=== PATIENT | female | born 1965 | race Caucasian/White ===

== ENCOUNTER 2016-12-03 01:17 | Observation (INO) | payer MEDICARE ==
--- NOTE | ~2016-12-03 | EKG ---
PATIENT: ALESSANDRO HUFFMAN UNIT #: [id number] Ventricular Rate: 76 BPM Atrial Rate: 76 BPM P-R Interval: 152 ms QRS Duration: 74 ms Q-T Interval: 400 ms QTC Calculation(Bezet): 450 ms P [place]: 22 degrees Calculated R [place]: 42 degrees Calculated T [place]: 63 degrees Diagnosis Line: Normal sinus rhythm Diagnosis Line: Normal ECG Diagnosis Line: When compared with ECG of 28-JUN-2016 08:25, Diagnosis Line: Vent. rate has decreased BY 45 BPM Diagnosis Line: Confirmed by DIMPLE FOFANA MD ([id number]) on 12/04/2016 Diagnosis Line: 9:14:13 PM INTERPRETING MD: CT HAN
--- NOTE | ~2016-12-03 | HP ---
Unit #: [id number] #: [id number] Patient: ALESSANDRO HUFFMAN [id number] [address] [address] [id number] Kalyn MR#: [id number] NAME: ALESSANDRO HUFFMAN ROOM: 324 Age: 50 Sex: F Admission Date: 12/03/2016 : 1965 Attending Physician: Keyana Lomas M.D. Primary Care Physician: Luis F Contreras M.D. HISTORY AND PHYSICAL CHIEF COMPLAINT New onset seizures. HISTORY This pleasant 50-year-old female with COPD, GERD, migraine headaches, was transferred from [facility] emergency department for new onset seizures. The story I got from the ER physician and the patient are slightly different. ER physician told me that the patient was seen in their emergency department over the past week for a new onset seizure. She returned last evening postictal following a witnessed generalized seizure. Workup was fairly unremarkable except for sinus disease on head CT. She was given Augmentin, a liter of saline, ibuprofen, and given a gram of IV Keppra. The patient states that this is her fourth seizure over the past month. The seizures had been witnessed by her girlfriend. The patient developed tonic clonic activity without preceding aura or symptoms. She was postictal afterwards, and has bit her tongue, and did experience urinary incontinence. Denies change in her usual migraines or any other new neurologic symptoms. PAST MEDICAL HISTORY 1. COPD. 2. Anxiety. 3. GERD. 4. Migraine headaches. 5. Chronic neck and back pain. 6. Multiple C-spine surgeries. 7. Hysterectomy. 8. Appendectomy. ALLERGIES No known drug allergies. HOME MEDICATIONS 1. [place] 10 mg, five tablets daily. 2. Xanax one and a half tablets at bedtime as needed. 3. Imitrex 100 mg as needed. FAMILY HISTORY Brother had epilepsy. SOCIAL HISTORY The patient lives with her girlfriend and son of the girlfriend. She Unit #: [id number] #: [id number] Patient: ALESSANDRO HUFFMAN smokes about one and a half packs per day of tobacco, does not drink alcohol. REVIEW OF SYSTEMS Notable for new onset of what sounds to be seizures with urinary incontinence, postictal afterwards and biting tongue. Tobacco abuse, COPD, anxiety, GERD, chronic pain, migraines, above mentioned surgeries. All other systems were reviewed and are otherwise negative. PHYSICAL EXAMINATION GENERAL APPEARANCE: Pleasant, thin, 50-year-old female, currently in no acute distress. VITAL SIGNS: Prior to transfer, temperature 99.4, pulse 101, respirations 16, blood pressure 100/75, O2 saturation 100% on room air. HEENT: Eyes PERRLA. Extraocular muscles are intact. Pharynx is benign. NECK: Supple without adenopathy or thyromegaly. CHEST: Clear. CARDIAC: Normal S1 and S2 without S3, S4 or murmur. ABDOMEN: Bowel sounds are present. No hepatosplenomegaly, tenderness or masses. EXTREMITIES: Without clubbing, cyanosis or edema. Pedal pulses are present. NEUROLOGIC: The patient is awake, alert, oriented. Her cranial nerves are intact. She has +5 out of 5 strength throughout. Normal rapid alternating movements, normal [id number]. Negative pronator drift. She is able to sit up without assistance. DIAGNOSTIC STUDIES LABORATORY: Labs prior to transfer - hematocrit 36.7, normal white count and platelet count. Urinalysis - small leukocyte esterase, trace blood, 5-10 white cells. SMA-12 - normal except for a glucose of 133. Cardiac markers negative. Coags normal. Urine tox screen positive for opiates, TCA, THC. Alcohol level is negligible. IMAGING: CT scan of the head shows increasing sinus disease. Chest x-ray from several days ago was negative. ASSESSMENT 1. New onset seizure for the past week versus months: I am unsure as the patient's story is somewhat different than the ER physician's story. 2. Chronic obstructive pulmonary disease: Ongoing tobacco use with negative chest x-ray this past week. 3. Chronic back and neck pain, on [place]. 4. Migraine headaches. 5. Sinus disease noted on CT scan. PLANS 1. Continue Keppra which was started in the ER. 2. Obtain an MRI of the brain and EEG. Unit #: [id number] #: [id number] Patient: ALESSANDRO HUFFMAN 3. Neurology consultation. 4. NicoDerm patch. 5. Continue Augmentin which was started earlier. 6. No driving per [employer] law for 90 days. Dictated by Keyana Lomas M.D. [facility]/sylvia TD: 12/03/2016 07:04 JOB #: [id number] HISTORY AND PHYSICAL Page 1 of 1 X Keyana Lomas MD HISTORY AND PHYSICAL
--- NOTE | ~2016-12-03 | DS ---
Unit #: [id number] #: [id number] Patient: ALESSANDRO HUFFMAN [id number] [address] [place], [place] [address] [id number] I MR#: [id number] NAME: ALESSANDRO HUFFMAN ROOM: 324 Age: 51 Sex: F Admission Date: 12/03/2016 : 1965 Discharge Date: 12/03/2016 Attending Physician: Mahesh Lane M.D. Primary Care Physician: Luis F Contreras M.D. DISCHARGE SUMMARY DISCHARGE DIAGNOSES 1. New onset seizure disorder. 2. Chronic obstructive pulmonary disease and chronic tobacco usage. 3. Chronic back and neck pain. 4. Migraine headache. 5. Chronic sinusitis, will be discharged on Augmentin. PROCEDURES None. DIAGNOSTIC STUDIES IMAGING STUDIES: The patient had a CT head on 11/25/2016, which was unremarkable. LABORATORY RESULTS: Today's lab includes BMP; glucose 118, BUN 7, creatinine 0.7, sodium 142, potassium 4.0, chloride 111, CO2 of 24, calcium 9.2, total protein 6.5, albumin 3.9, total bilirubin 0.3, AST 15, ALT 18, and alkaline phosphatase 79. CBC with WBC of 8.2, RBC is 4.02, hemoglobin is 11.9, hematocrit 36.5, MCV is 90.8, MCH is 29.7, MCHC is 32.7, RDW is 14.5, platelets are 208, and MPV is 7.5. Urine drug screen was positive for opioids and positive for TCA. CONSULTANTS Dr. Rodriguez of Neurology. HOSPITAL COURSE The patient is a 50-year-old female with past medical history of tobacco usage, COPD, GERD, and migraine headache, who was transferred from [facility] Emergency Department for a new onset seizure per ER physician, the patient new onset seizure. She returned home in the evening with witnessed generalized seizure. Workup had been remarkable with head CT with only involving of a sinus disease. She was given Augmentin, a liter of saline, ibuprofen, and 1 g of IV Keppra. states that she lives witnessed tonic clonic activity without proceeding she had bitten her tongue. She did experience urinary incontinence and state that she has had symptoms over the past month. She was admitted to our facility and was seen in consultation with Dr. Rodriguez, Neurology, who felt that maybe her seizure disorder was provoked history of alcohol abuse. At this time, Dr. Rodriguez is recommending that the patient will be discharged home with Lyrica as well as analgesic for her chronic neck and back pain instead of taking the gabapentin. He does not recommend the patient to be Unit #: [id number] #: [id number] Patient: ALESSANDRO HUFFMAN continued on Keppra. The patient at this time is wanting to be discharged home; therefore, she can have further workup with EEG and MRI outpatient by her PCP within 1 to 2 weeks and recommending that she follows with for her epilepsy disorder at the next available appointment. DISCHARGE CONDITION Stable. DISCHARGE INSTRUCTIONS Follow up with primary care physician within 1 to 2 weeks and follow up with Dr. Miller, Outpatient Neurology next available appointment. DISCHARGE ACTIVITIES Resume activities as was prior to hospitalization with ambulating every day with exception that I would not recommend the patient to drive at this time with her new onset seizure disorder until she is cleared by neurologist. DISCHARGE DIET Resume heart healthy diet. MEDICATIONS Ventolin 2 puffs inhaled twice daily as need for shortness of breath, orally daily, venlafaxine extended release 100 mg orally daily, Xanax 1 mg orally at bedtime as needed for insomnia, Imitrex 100 mg orally every 4 hours as needed for migraine headache, and hydrocodone with acetaminophen 10/325 one tablet orally three times daily as needed for severe pain, Augmentin 500/125 one tablet three times daily for the next 5 days as well as one tablet orally twice daily, and Claritin 10 mg orally daily for her chronic sinusitis. Dictated by... Abdias Sanchez PA-C for [facility]/mikaela TD: 12/04/2016 04:36 JOB #: [id number] DISCHARGE SUMMARY Page 1 of 1 X X DISCHARGE SUMMARY
--- NOTE | ~2016-12-03 | CO ---
Unit #: [id number] #: [id number] Patient: ALESSANDRO HUFFMAN [id number] [facility] [address]. [place], [place] [address] [id number] I MR#: [id number] NAME: ALESSANDRO HUFFMAN ROOM: 324 Age: 50 Sex: F Admission Date: 12/03/2016 : 1965 Attending Physician: Mahesh Lane M.D. Primary Care Physician: Luis F Contreras M.D. Consultation Date: 12/03/2016 CONSULTATION REPORT PRIMARY CARE PHYSICIAN Luis F Contreras M.D. REASON FOR CONSULTATION Multiple seizures. PATIENT IDENTIFICATION This is a 50-year-old right-handed white female, who was evaluated in room 324 at [facility]. SOURCE OF INFORMATION The patient and evaluation done by Dr. Lomas in detail. PROBLEM LIST 1. Multiple seizures. 2. COPD. 3. Chronic back pain, on [place]. 4. Migraine headaches. 5. Sinus disease noted on CAT scan. 6. Possible aberrant or abuse of Neurontin. HISTORY OF PRESENT ILLNESS This is a very pleasant 50-year-old right-handed white female, who was actually transferred from [facility] and one of the reason was that she has had multiple seizures. She is doing fine right now and what I found out on history was that she has been taking Neurontin, very high dose, 800 mg three times daily and sometimes she will take six instead of three tablets, other times she will miss them. So she gets confused, she has had a few seizures. She is doing fine right now. She may have had four seizures. She was given Keppra. No falls or injuries. Nothing suggesting meningitis. She may have sinus disease, but she is doing very well right now. Also, she is taking Xanax and [place]. Her MRI and other tests are pending. No prior history of epilepsy and all these episodes have been in the last week. No insect bites. No stroke like symptoms. Unit #: [id number] #: [id number] Patient: ALESSANDRO HUFFMAN Her vital signs are stable. She is afebrile. White count is 8.2. Urine drug screen was discussed. Urinalysis was otherwise nothing impressive. There is no aura. PAST MEDICAL HISTORY As discussed above. PAST SURGICAL HISTORY As discussed above. FAMILY HISTORY Brother has epilepsy. ALLERGIES None. HOME MEDICATIONS [place], Xanax, medication like Neurontin. SOCIAL HISTORY The patient lives with girlfriend and son of the girlfriend. She smokes about one-half pack per day. Does not drink. Sort of abusing Neurontin, but she denies any other drug abuse. REVIEW OF SYSTEMS GENERAL: She is a little bit lethargic. She states that she did not sleep well, but she is otherwise doing fine. She denies any weight issues, fever, chills, rigor, or sweats. HEENT: No headaches. No double vision, earache, runny nose, or sore throat. CARDIOVASCULAR: No chest pain, clubbing, cyanosis, orthopnea, or palpitation. PULMONARY: No shortness of air, cough, or expectoration. GI: No nausea, vomiting, diarrhea, or constipation. : No genitourinary symptoms. EXTREMITIES: No extremity problems. BACK: She has chronic back problem. PSYCHIATRIC: No psychotic issue. NEUROLOGIC: As discussed. No other hematologic, dermatologic, or endocrine problem. PHYSICAL EXAMINATION VITAL SIGNS: Temperature 97.6, pulse 75, respirations 18, blood pressure 127/79. At present, she reports no pain. O2 saturations were 98% to 99%. NEUROLOGIC: The patient is awake, alert, oriented x3 and has normal speech. She was lethargic but appropriate. Cranial nerve examination demonstrates full sales of vision to confrontation. Eye movements are conjugate. I did not see any ptosis. I did not see any nystagmus. Extraocular movements are intact. Sensation on the face and scalp are normal. Strength of muscles of facial expression normal. Hearing seemed to be intact bilaterally. Tongue was midline. Uvula was midline. Palate elevation is normal. Head turning and shoulder shrugs were unremarkable. Unit #: [id number] #: [id number] Patient: CROSS,ALESSANDRO Motor examination demonstrated normal bulk, tone. Strength was essentially 5/5. Sensory examination intact for soft touch and pain sensation. No extinction was seen. Romberg was not evaluated. Gait examination was deferred. I could not get any reflexes in the lower extremities; 1/4 in the upper extremities. Toes are equivocal. [id number] was normal, otherwise nothing major. IMPRESSION 1. Multiple seizure-like events. My concern is that most likely these are secondary to her abuse of Neurontin. There is nothing suggesting epilepsy right now. 2. I would recommend to discontinue Keppra and use Lyrica for chronic pain. Another option would be Topamax. 3. She is stable right now and I told her to use Neurontin as advised, and the reason is that if you take more, it can cause problem and if she stopped taking or run out of the medications, you will have withdrawal seizures. Seizure precaution of state laws apply. 4. Follow up with outpatient Neurology as she is stable and wants to go home and do an EEG and MRI as outpatient. Discussed briefly with . Dictated by... Amy Rodriguez M.D. NATHANAEL/mikaela TD: 12/04/2016 02:37 JOB #: [id number] CONSULTATION REPORT Page 1 of 1 X Amy Rodriguez MD X CONSULTATION REPORT
[~2016-12-03 01:17] MED LIST: ADVAIR 250-501 EACH; ALBUTEROL17 G1 IH; AMITRYPTYLINE PO; ASPIRIN81 M1 PO; FLEXERIL10 MG PO; HYDROCODON-ACE1 EAC5 PO; IBUPROFEN800 MG PO; IMITREX25 MG DOB; LORTAB 7.5-5001 TAB; NEURONTIN PO; NITROSTAT0.4 MG SL; PANTOPRAZOLE SO40 MG PO; REGLAN10 MG PO; SIMVASTATIN40 MG PO; TOPAMAX50 MG DOB; VENLAFAXINE HC150 MG; XANAX1 MG PO; ZANTAC150 M1 PO
[2016-12-03] MEDS ORDERED: AMITRIPTYLINE H50 MG PO (07:39)
[2016-12-03] MEDS ORDERED: HYDROCODON-ACE1 EAC5 PO (07:39)
[2016-12-03] MEDS ORDERED: ALBUTEROL17 GM INH (07:41)
[2016-12-03] MEDS ORDERED: NEURONTIN800 MG (07:42)
[2016-12-03 07:44] LABS: HEMATOCRIT 36.5 % (35.0-45.0); HEMOGLOBIN 11.9 gm/dL (12.0-16.0); MEAN CELL VOLUME 90.8 FL (83-96); MEAN CORPUSCULAR HEMOGLOBIN 29.7 PG (28-34); MEAN CORPUSCULAR HGB CONC 32.7 g/dL (30-36); MEAN PLATELET VOLUME 7.5 FL (6.5-11.5); RED BLOOD COUNT 4.02 X10e (3.90-5.30); RED CELL DISTRIBUTION WIDTH 14.5 % (11.0-15.5); WHITE BLOOD COUNT 8.2 X10e3 (4.0-10.5)
[2016-12-03] MEDS ORDERED: IMITREX PO (07:44)
[2016-12-03 08:20] LABS: ALBUMIN SERUM 3.9 g/dL (3.5-5.0); BILIRUBIN,TOTAL 0.3 mg/dL (0.2-2.0); CALCIUM SERUM 9.2 mg/dL (8.4-10.2); CREATININE SERUM 0.7 mg/dL (0.6-1.4); GLOM FILT RATE Estimated 101.7 mL/min (>60); PROTEIN TOTAL SERUM 6.5 g/dL (6.0-8.3)
[2016-12-03] MEDS ORDERED: AUGMENTIN PO (11:45)
[2016-12-03] MEDS ORDERED: MUCINEX FAST-M1 EAC5 PO (11:47)
[2016-12-03] MEDS ORDERED: CLARITIN10 M3 PO (11:48)
[2016-12-03] MEDS ORDERED: LYRICA100 MG PO (11:51)
[2016-12-03] MEDS ORDERED: VENLAFAXINE HC100 MG PO (12:12)
== END 2016-12-03 13:30 | disposition home or self-care (01) ==
LOC: CED 01:17 → C3A PCU 03:40
PROVIDERS: Internal Medicine
DX: G40.909 Epilepsy, unspecified, not intractable, without status epilepticus (principal); J44.9 Chronic obstructive pulmonary disease, unspecified; M54.9 Dorsalgia, unspecified; M54.2 Cervicalgia; J32.8 Other chronic sinusitis; K21.9 Gastro-esophageal reflux disease without esophagitis; Z79.899 Other long term (current) drug therapy; F17.200 Nicotine dependence, unspecified, uncomplicated; Z90.710 Acquired absence of both cervix and uterus; Z98.890 Other specified postprocedural states; Z84.89 Family history of other specified conditions
CPT/HCPCS: 80053; 85027; 93005; G0378